=== PATIENT | female | born 1935 | race Caucasian/White ===

== ENCOUNTER 2020-08-02 08:07 | Inpatient (IN) | payer MEDICARE, SELFPAY ==
--- NOTE | ~2020-08-02 | XR_ITS ---
EXAMINATION: XR CHEST CLINICAL INFORMATION: Fall COMPARISON: None TECHNIQUE: Frontal view of the chest was obtained. FINDINGS: The cardiac and mediastinal contours are normal. There is a small nodular density that projects over the right midlung. This may be related to superimposition of vascular structures, the right anterior third and posterior eighth ribs. The lungs are otherwise clear. There is no pleural effusion or pneumothorax. There are surgical clips in the left axilla. There are degenerative changes of the spine. XR/XR chest 1V IMPRESSION: No evidence for acute disease in the chest. 5 mm right mid lung nodule, question related to superimposition of bony and vascular structures.
--- NOTE | ~2020-08-02 | XR_ITS ---
EXAMINATION: XR CHEST CLINICAL INFORMATION: Question pulmonary nodule COMPARISON: Previous chest x-ray from yesterday TECHNIQUE: 2 views of the chest were obtained. FINDINGS: The cardiac and mediastinal contours are stable. The lungs are clear. There is question right mid lung pulmonary nodule on yesterday's chest x-ray is not appreciated. There is no pleural effusion or pneumothorax. There are degenerative changes of the spine. There are surgical clips in the left axilla. XR/XR chest 2V IMPRESSION: No pulmonary nodule seen.
--- NOTE | ~2020-08-02 | CT_ITS ---
EXAMINATION: CT HEAD WITHOUT CONTRAST CLINICAL INFORMATION: Fall COMPARISON: None TECHNIQUE: Contiguous axial imaging was performed from the skull base to vertex without intravenous administration of contrast. This CT examination was performed using dose optimization techniques as appropriate, variously including the following: *Automated exposure control *Adjustment of mA and/or kV according to patient size (this includes techniques or standardized protocols for targeted exams where dose is matched to indication/reason for exam; i.e. extremities or head) *Use of iterative reconstruction technique DLP: 611 mGy-cm FINDINGS: There is no evidence of an extra-axial collection. There is no evidence of intra-axial or extra-axial hemorrhage. The ventricles and extra-axial CSF spaces are prominent suggestive of generalized atrophy. There is nonspecific periventricular white matter disease. No mass, mass effect or infarct is seen. Review of bone windows is normal. No skull fracture is seen. Paranasal sinuses mastoid air cells and middle ears are clear. CT/CT head/brain wo con IMPRESSION: No acute findings. Generalized atrophy and nonspecific periventricular white matter disease.
[2020-08-02 08:22] VITALS: BP 153/65; BP 154/80; PULSE 100; RESP 18; TEMP 36.6; O2SAT 98; BMI 31.6
--- NOTE | 2020-08-02 08:44 | ECG_ITS ---
Test Reason : FALL Blood Pressure : / mmHG Vent. Rate : 091 BPM Atrial Rate : 091 BPM P-R Int : 128 ms QRS Dur : 078 ms QT Int : 350 ms P-R-T Axes : 040 -02 -34 degrees QTc Int : 430 ms Normal sinus rhythm Cannot rule out Inferior infarct , age undetermined Abnormal ECG No previous ECGs available Referred By: Princess Olson Electronically Signed By:MARCELO GARBER MD
--- NOTE | 2020-08-02 08:46 | ED.FALL ---
HPI - Fall General Chief Complaint: Fall Stated Complaint: FALL,ON FLOOR SINCE 3AM,NO C/O PAIN/INJURY PER EMS Time Seen by Provider: 08/02/20 08:44 Source: patient and EMS Mode of arrival: EMS Limitations: no limitations History of Present Illness HPI Narrative: 84 years old female came in by ambulance for evaluation of a fall. Patient fell last night around 03:00 patient was changing her shirt and lost balance then fell backward, patient had the back of her head, declined any LOC, patient opted to remain on the floor did not want to bother anybody at that time, then patient called for help at 07:00, patient normally lives home alone mostly independently, patient declined taking any blood thinner, also declined any symptoms of pain or injuries. Patient declined any LOC or feeling dizzy or chest pain. Related Data Allergies Allergy/AdvReac Type Severity Reaction Status Date / Time adhesive tape Allergy Rash Verified 08/02/20 08:21 Review of Systems Review of Systems: All other systems are reviewed and are negative Constitutional: Reports as per HPI and Reports no additional constitutional complaints Eyes: Reports as per HPI and Reports no additional eye complaints Reports system reviewed and no additional complaints, except as documented Cardiovascular: Reports as per HPI and Reports no additional cardiovascular complaints Respiratory: Reports as per HPI and Reports no additional respiratory complaints Gastrointestinal: Reports as per HPI and Reports no additional gastrointestinal complaints Genitourinary: Reports no additional female genitourinary complaints Musculoskeletal: Reports no additional musculoskeletal complaints Skin/Breast: Reports system reviewed and no additional complaints, except as docu Psychiatric: Reports no additional psychiatric complaints Endocrine: Reports no additional endocrine complaints Hematologic/Lymphatic: Reports no additional hematologic/lymphatic complaints Allergic/Immunologic: Reports no additional allergic/immunologic complaints Reports system reviewed and no additional complaints, except as documented and Reports Abnormal speech present [facility] Social History Social History Alcohol intake: never Smoking Status: Never smoker Use of substances other than those prescribed or required for medical reasons: No Advance Directives: No Advance Directives Information Provided: No Physical Exam Vital Signs: Vital Signs: Last Vital Signs Temp 97.8 F 08/02/20 08:22 Pulse 91 08/02/20 12:00 Resp 18 08/02/20 12:00 BP 134/55 L 08/02/20 12:00 Pulse Ox 96 08/02/20 12:00 Body Mass Index 31.6 Vital signs have been reviewed as appeared to be correct. Blood pressure normal. Heart rate normal. Respiration rate normal. Temperature normal. Oxygen saturation normal. Appearance: Alert. Oriented X3. No acute distress. Head: Normal external exam. Normocephalic. Atraumatic. No Espinoza signs noted. No raccoon eyes noted Eyes: PERRLA. EOMI. Conjunctiva and sclera normal. Eyelids normal. ENT: TM's Normal. Pharynx normal. Uvula midline. Moist mucous membranes. No trismus noted. No drooling noted. No muffled voice noted. Neck: Normal inspection. Neck supple. FROM. No adenopathy. Thyroid Normal. No meningeal signs. No neck mass noted. CVS: Normal heart rate and rhythm. Heart sound normal. No murmurs noted. Pulses normal throughout. Respiratory: No respiratory distress. Painless inspiration. Breath sounds normal. No wheezes/rales/rhonchi noted. Chest nontender. No accessory muscle usage noted or decreased air movement noted. Abdomen: Soft and nontender. Bowel sounds normal in all 4 quadrants. No distention noted. No organomegaly noted. No visible injury noted. Back: No CVA tenderness. Full range of motion noted. Skin: Skin warm and dry. Normal skin color. Normal skin turgor. No rashes/lesions/lacerations noted. Extremities: No lower extremity edema. Extremities exhibit normal range of motion. Extremities nontender. Neuro: Oriented X 3. No motor deficit. No sensory deficit. Reflexes normal. GCS 15 Course Course Course Narrative: Assessment and plan. 84-year-old female came in after a mechanical fall and found to be hyperglycemic. No DKA, patient was placed on IV insulin drip while in the emergency department now blood sugar is in the 500s, will stop insulin drip continue with IV hydration and intermittent sq long acting insulin boluses Reevaluation(s) Reevaluation #1: Blood sugar now is 403, will wean off the IV insulin drip started long-acting subQ insulin. IV hydration, Will admit the patient for further management of hyperglycemia. Time: 15:57 MDM - Fall Lab Data Attestation: I reviewed the patient's lab results. Result diagrams: 08/02/20 09:38 08/02/20 09:38 Labs: Lab Results 08/02/20 08/02/20 08/02/20 Range/Units 09:02 09:38 09:38 WBC 12.9 H (4.8-10.8) X10*3/uL RBC 5.54 H (4.20-5.50) X10*6/uL Hgb 16.6 H (12.0-16.0) g/dl Hct 50.4 H (37-47) % MCV 91.0 (80-98) fL MCH 30.0 (27.0-33.0) pg MCHC 32.9 (31.0-35.0) g/dl RDW 13.5 (11.0-16.0) % Plt Count 230 (160-400) X10*3/uL MPV 11.8 (9.4-12.3) fL Immature Gran % (Auto) 0.6 H (0.0-0.4) % Neut % (Auto) 73.9 H (45-73) % Lymph % (Auto) 19.2 L (20-40) % [place] % (Auto) 6.1 (2-11) % Eos % (Auto) 0.0 (0-4) % Baso % (Auto) 0.2 (0-2) % Lymph # (Auto) 2.5 (1.2-4.9) X10*3/uL [place] # (Auto) 0.8 (0.1-1.2) X10*3/uL Eos # (Auto) 0.0 (0.0-0.4) X10*3/uL Baso # (Auto) 0.0 (0.0-0.2) X10*3/uL Abs Immat Gran (auto) 0.08 H (0.00-0.03) X10*3/uL Absolute Neuts (auto) 9.5 H (2.0-8.3) X10*3/uL Absolute Nucleated RBC 0.000 (0.0-0.012) X10*3/uL Nucleated RBC % (auto) 0.0 (0.0-0.2) /100WBC O2 Saturation % ABG pH at Pt Temp (7.35-7.45) ABG pH (Temp Correct) (7.35-7.45) ABG pCO2 at Pt Temp (32-45) mmHg ABG pCO2 (Temp Corrct (32-45) mmHg ABG pO2 at Pt Temp (83-108) mmHg ABG pO2 (Temp Correct (83-108) ABG HCO3 (22-26) mmol/L ABG Base Excess (Actual) mmol/L Sodium 146 H (135-145) mmol/L Potassium 5.5 H (3.3-5.1) mmol/L Chloride 98 (96-108) mmol/L Carbon Dioxide 21 L (22-29) mmol/L Anion Gap 33 H (12-20) BUN 32 H (9-16) mg/dL Creatinine 1.90 H (0.5-1.4) mg/dL Estim Creat Clear Calc 18.9 Estimated GFR 25 POC Glucose > 600 H* (60-115) mg/dL Random Glucose 845 H* (60-115) mg/dL Calcium 11.0 H (8.4-10.2) mg/dL Total Bilirubin 0.6 (0.0-1.0) mg/dL Direct Bilirubin 0.3 (0.0-0.5) mg/dL AST 16 (5-31) U/L ALT 29 (0-31) U/L Alkaline Phosphatase 156 H (39-117) U/L Total Creatine Kinase 91 (26-140) U/L Troponin I High Sens (<3.5-17.0) ng/L B-Natriuretic Peptide (<100) pg/mL Total Protein 7.7 (6.5-8.0) g/dL Albumin 4.5 (3.5-5.0) g/dL Lipase 56 (8-78) U/L 08/02/20 08/02/20 08/02/20 Range/Units 09:38 09:38 09:48 WBC (4.8-10.8) X10*3/uL RBC (4.20-5.50) X10*6/uL Hgb (12.0-16.0) g/dl Hct (37-47) % MCV (80-98) fL MCH (27.0-33.0) pg MCHC (31.0-35.0) g/dl RDW (11.0-16.0) % Plt Count (160-400) X10*3/uL MPV (9.4-12.3) fL Immature Gran % (Auto) (0.0-0.4) % Neut % (Auto) (45-73) % Lymph % (Auto) (20-40) % [place] % (Auto) (2-11) % Eos % (Auto) (0-4) % Baso % (Auto) (0-2) % Lymph # (Auto) (1.2-4.9) X10*3/uL [place] # (Auto) (0.1-1.2) X10*3/uL Eos # (Auto) (0.0-0.4) X10*3/uL Baso # (Auto) (0.0-0.2) X10*3/uL Abs Immat Gran (auto) (0.00-0.03) X10*3/uL Absolute Neuts (auto) (2.0-8.3) X10*3/uL Absolute Nucleated RBC (0.0-0.012) X10*3/uL Nucleated RBC % (auto) (0.0-0.2) /100WBC O2 Saturation % ABG pH at Pt Temp (7.35-7.45) ABG pH (Temp Correct) (7.35-7.45) ABG pCO2 at Pt Temp (32-45) mmHg ABG pCO2 (Temp Corrct (32-45) mmHg ABG pO2 at Pt Temp (83-108) mmHg ABG pO2 (Temp Correct (83-108) ABG HCO3 (22-26) mmol/L ABG Base Excess (Actual) mmol/L Sodium (135-145) mmol/L Potassium (3.3-5.1) mmol/L Chloride (96-108) mmol/L Carbon Dioxide (22-29) mmol/L Anion Gap (12-20) BUN (9-16) mg/dL Creatinine (0.5-1.4) mg/dL Estim Creat Clear Calc Estimated GFR POC Glucose > 600 H* (60-115) mg/dL Random Glucose (60-115) mg/dL Calcium (8.4-10.2) mg/dL Total Bilirubin (0.0-1.0) mg/dL Direct Bilirubin (0.0-0.5) mg/dL AST (5-31) U/L ALT (0-31) U/L Alkaline Phosphatase (39-117) U/L Total Creatine Kinase (26-140) U/L Troponin I High Sens 11.3 (<3.5-17.0) ng/L B-Natriuretic Peptide 69 (<100) pg/mL Total Protein (6.5-8.0) g/dL Albumin (3.5-5.0) g/dL Lipase (8-78) U/L 08/02/20 08/02/20 08/02/20 Range/Units 11:23 12:03 12:59 WBC (4.8-10.8) X10*3/uL RBC (4.20-5.50) X10*6/uL Hgb (12.0-16.0) g/dl Hct (37-47) % MCV (80-98) fL MCH (27.0-33.0) pg MCHC (31.0-35.0) g/dl RDW (11.0-16.0) % Plt Count (160-400) X10*3/uL MPV (9.4-12.3) fL Immature Gran % (Auto) (0.0-0.4) % Neut % (Auto) (45-73) % Lymph % (Auto) (20-40) % [place] % (Auto) (2-11) % Eos % (Auto) (0-4) % Baso % (Auto) (0-2) % Lymph # (Auto) (1.2-4.9) X10*3/uL [place] # (Auto) (0.1-1.2) X10*3/uL Eos # (Auto) (0.0-0.4) X10*3/uL Baso # (Auto) (0.0-0.2) X10*3/uL Abs Immat Gran (auto) (0.00-0.03) X10*3/uL Absolute Neuts (auto) (2.0-8.3) X10*3/uL Absolute Nucleated RBC (0.0-0.012) X10*3/uL Nucleated RBC % (auto) (0.0-0.2) /100WBC O2 Saturation 97.0 % ABG pH at Pt Temp 7.41 (7.35-7.45) ABG pH (Temp Correct) 7.42 (7.35-7.45) ABG pCO2 at Pt Temp 29 L (32-45) mmHg ABG pCO2 (Temp Corrct 28 L (32-45) mmHg ABG pO2 at Pt Temp 99 (83-108) mmHg ABG pO2 (Temp Correct 96 (83-108) ABG HCO3 18 L (22-26) mmol/L ABG Base Excess (Actual) -4.2 mmol/L Sodium (135-145) mmol/L Potassium (3.3-5.1) mmol/L Chloride (96-108) mmol/L Carbon Dioxide (22-29) mmol/L Anion Gap (12-20) BUN (9-16) mg/dL Creatinine (0.5-1.4) mg/dL Estim Creat Clear Calc Estimated GFR POC Glucose > 600 H* 562 H* (60-115) mg/dL Random Glucose (60-115) mg/dL Calcium (8.4-10.2) mg/dL Total Bilirubin (0.0-1.0) mg/dL Direct Bilirubin (0.0-0.5) mg/dL AST (5-31) U/L ALT (0-31) U/L Alkaline Phosphatase (39-117) U/L Total Creatine Kinase (26-140) U/L Troponin I High Sens (<3.5-17.0) ng/L B-Natriuretic Peptide (<100) pg/mL Total Protein (6.5-8.0) g/dL Albumin (3.5-5.0) g/dL Lipase (8-78) U/L 08/02/20 08/02/20 Range/Units 14:09 15:20 WBC (4.8-10.8) X10*3/uL RBC (4.20-5.50) X10*6/uL Hgb (12.0-16.0) g/dl Hct (37-47) % MCV (80-98) fL MCH (27.0-33.0) pg MCHC (31.0-35.0) g/dl RDW (11.0-16.0) % Plt Count (160-400) X10*3/uL MPV (9.4-12.3) fL Immature Gran % (Auto) (0.0-0.4) % Neut % (Auto) (45-73) % Lymph % (Auto) (20-40) % [place] % (Auto) (2-11) % Eos % (Auto) (0-4) % Baso % (Auto) (0-2) % Lymph # (Auto) (1.2-4.9) X10*3/uL [place] # (Auto) (0.1-1.2) X10*3/uL Eos # (Auto) (0.0-0.4) X10*3/uL Baso # (Auto) (0.0-0.2) X10*3/uL Abs Immat Gran (auto) (0.00-0.03) X10*3/uL Absolute Neuts (auto) (2.0-8.3) X10*3/uL Absolute Nucleated RBC (0.0-0.012) X10*3/uL Nucleated RBC % (auto) (0.0-0.2) /100WBC O2 Saturation % ABG pH at Pt Temp (7.35-7.45) ABG pH (Temp Correct) (7.35-7.45) ABG pCO2 at Pt Temp (32-45) mmHg ABG pCO2 (Temp Corrct (32-45) mmHg ABG pO2 at Pt Temp (83-108) mmHg ABG pO2 (Temp Correct (83-108) ABG HCO3 (22-26) mmol/L ABG Base Excess (Actual) mmol/L Sodium (135-145) mmol/L Potassium (3.3-5.1) mmol/L Chloride (96-108) mmol/L Carbon Dioxide (22-29) mmol/L Anion Gap (12-20) BUN (9-16) mg/dL Creatinine (0.5-1.4) mg/dL Estim Creat Clear Calc Estimated GFR POC Glucose 528 H* 406 H* (60-115) mg/dL Random Glucose (60-115) mg/dL Calcium (8.4-10.2) mg/dL Total Bilirubin (0.0-1.0) mg/dL Direct Bilirubin (0.0-0.5) mg/dL AST (5-31) U/L ALT (0-31) U/L Alkaline Phosphatase (39-117) U/L Total Creatine Kinase (26-140) U/L Troponin I High Sens (<3.5-17.0) ng/L B-Natriuretic Peptide (<100) pg/mL Total Protein (6.5-8.0) g/dL Albumin (3.5-5.0) g/dL Lipase (8-78) U/L Imaging Data CT scan - head: Radiologist's impression: No acute findings. Generalized atrophy and nonspecific periventricular white matter disease. Chest x-ray: Radiologist's impression: No evidence for acute disease in the chest. 5 mm right mid lung nodule, question related to superimposition of bony and vascular structures. Discharge Plan Discharge Clinical Impression: Lung nodule, Acute hyperglycemia, Fall Patient Disposition: Admitted As Inpatient
[2020-08-02 09:42] LABS: Glucose, Whole Blood > 600 mg/dL (60-115)
[2020-08-02 09:43] LABS: MANUAL DIFF FLAG NO
[2020-08-02 09:46] LABS: Basophils Percent Auto 0.2 % (0-2); Hematocrit 50.4 % (37-47); Hemoglobin 16.6 g/dl (12.0-16.0); Imm Gran Abs Auto 0.08 X10*3/uL (0.00-0.03); Imm Gran Pct Auto 0.6 % (0.0-0.4); Lymphocytes Absolute Auto 2.5 X10*3/uL (1.2-4.9); Lymphocytes Percent Auto 19.2 % (20-40); Mean Corpuscular HGB Conc 32.9 g/dl (31.0-35.0); Mean Platelet Volume 11.8 fL (9.4-12.3); Monocytes Absolute Auto 0.8 X10*3/uL (0.1-1.2); Monocytes Percent Auto 6.1 % (2-11); Neutrophils Absolute Auto 9.5 X10*3/uL (2.0-8.3); Neutrophils Percent Auto 73.9 % (45-73); Platelet Count 230 X10*3/uL (160-400); Red Blood Count 5.54 X10*6/uL (4.20-5.50); Red Cell Distribution Width 13.5 % (11.0-16.0); White Blood Count 12.9 X10*3/uL (4.8-10.8)
[2020-08-02 09:51] LABS: Glucose, Whole Blood > 600 mg/dL (60-115)
[2020-08-02 10:21] LABS: B Type Natriuretic Peptide 69 pg/mL (<100)
[2020-08-02 10:22] LABS: Troponin-I High Sensitivity 11.3 ng/L (<3.5-17.0)
[2020-08-02] MEDS: 0.9 % Sodium Chloride 1,000 ML 999 ML IVCONT ×2 (10:27→16:03)
[2020-08-02] MEDS: Insulin Regular, Human 100 UNIT/ML 3 ML VIAL IVPUSH ×3 (10:27→14:22)
[2020-08-02 10:30] VITALS: BP 137/62; PULSE 89; RESP 18; O2SAT 98
--- NOTE | 2020-08-02 10:31 | PC.NURSE ---
EKG, labs, and CT obtained. Pt given IVF and IV insluin for a POC >600
[2020-08-02 10:38] LABS: Alanine Aminotransferase 29 U/L (0-31); Albumin Level 4.5 g/dL (3.5-5.0); Alkaline Phosphatase 156 U/L (39-117); Anion Gap 33 (12-20); Aspartate Amino Transferase 16 U/L (5-31); Bilirubin Direct 0.3 mg/dL (0.0-0.5); Bilirubin Total 0.6 mg/dL (0.0-1.0); Blood Urea Nitrogen 32 mg/dL (9-16); Carbon Dioxide 21 mmol/L (22-29); Chloride 98 mmol/L (96-108); Creatinine Clr Calc Pharmacy 18.9; Estimated Glomerular Filt Rate 25; Lipase 56 U/L (8-78); Potassium 5.5 mmol/L (3.3-5.1); Sodium 146 mmol/L (135-145); Total Protein 7.7 g/dL (6.5-8.0)
[2020-08-02 10:49] LABS: Glucose Random 845 mg/dL (60-115)
[2020-08-02] MEDS: Insulin Regular/NS 100 UNIT/100 ML PLAST..BAG IVCONT (11:47)
[2020-08-02 12:00] VITALS: BP 134/55; PULSE 91; RESP 18; O2SAT 96
[2020-08-02 12:11] LABS: ABG Base Excess -4.2 mmol/L; ABG HCO3 18 mmol/L (22-26); ABG pCO2 29 mmHg (32-45); ABG pCO2 TC 28 mmHg (32-45); ABG pH 7.41 (7.35-7.45); ABG pH TC 7.42 (7.35-7.45); ABG pO2 99 mmHg (83-108); ABG pO2 TC 96 (83-108)
[2020-08-02 12:15] LABS: ABG Refer to POC result
--- NOTE | 2020-08-02 12:19 | PC.NURSE ---
New IV placed to left wrist and Insulin drip started.
[2020-08-02 12:31] LABS: Glucose, Whole Blood > 600 mg/dL (60-115)
[2020-08-02 13:03] LABS: Glucose, Whole Blood 562 mg/dL (60-115)
--- NOTE | 2020-08-02 14:30 | PC.NURSE ---
VO FROM TO CONTINUE INSULIN GTT AT 4U/HR.
[2020-08-02 15:24] LABS: Glucose, Whole Blood 406 mg/dL (60-115)
[2020-08-02 15:24] LABS: Glucose, Whole Blood 528 mg/dL (60-115)
--- NOTE | 2020-08-02 15:27 | PC.NURSE ---
POC trending down. She remains on drip at this time. Plan per MD is to take pt off of drip.
[2020-08-02 16:00] VITALS: BP 132/63; PULSE 88; RESP 18; O2SAT 96
[2020-08-02 16:12] LABS: Glucose, Whole Blood 348 mg/dL (60-115)
[2020-08-02] MEDS: Insulin Glargine,Hum.rec.anlog 100 UNIT/ML 10 ML VIAL SUBCUT (16:12)
--- NOTE | 2020-08-02 16:12 | PC.NURSE ---
poc obtained and long acting insulin given. Per MD give lantus as ordered, continue insulin gtt at same rate x1 hr after lantus and then turn off.
--- NOTE | 2020-08-02 16:45 | PM.IMHP ---
History of Present Illness Date of Service: 08/02/20 Chief Complaint: fall 84-year-old woman presenting to the ER after several falls at home. according to the patient's nephew she had at least 2 falls at home over the last 2 days. First fall she had EMS was called and she decided she did not want any further workup and they were able to put her in a chair. Second time she fell she called her nephew and his went to check on her and spent most of the day with her. She was found to be weak and unable to get up and they decided to have her evaluated in the emergency department. Patient was alert but somewhat vague. She seemed very weak she reported increased thirst and urination over the last several weeks. She denies any history of diabetes in the past. She denied chest pain, abdominal pain, nausea, vomiting, diarrhea. In the ER her blood sugar was noted to be greater than 845. She was given 2 L of IV fluid, 4 doses of insulin and then placed on an insulin drip. Blood sugars have ranged from 348 to greater than 600. initial potassium 5.5, now 3.8, initial sodium 146 now 156. Anion gap since closed, pH 7.42. Head CT showed no acute abnormalities, chest x-ray negative for consolidation or effusion, urinalysis pending. Patient be admitted for further management and treatment of DKA versus HHS. Review of Systems Review of Systems: Denies any recent fever chills or decrease in appetite respiratory denies any shortness of breath coverage production cardiovascular denies chest pain gastrointestinal denies any dysphagia abdominal pain nausea vomiting or diarrhea genitourinary reports polydipsia and polyuria musculoskeletal denies any joint pain or swelling neuropsych denies any weakness or seizures all other systems reviewed are negative [facility] Medical History (Updated 08/02/20 @ 17:03 by Jessica Cervantes NP) HTN (hypertension), benign Hyperlipidemia Pertinent family history: Great nephew with diabetes type II Social History Alcohol intake: never Smoking Status: Never smoker Use of substances other than those prescribed or required for medical reasons: No Advance Directives: No Advance Directives Information Provided: No Meds Allergies Allergy/AdvReac Type Severity Reaction Status Date / Time adhesive tape Allergy Rash Verified 08/02/20 08:21 Active Medications: Current Medications Generic Name Dose Route Start Last Admin Trade Name Lisa PRN Reason Stop Dose Admin Insulin Human Regular 100 unit in 100 mls @ 0 mls/hr 08/02/20 11:15 08/02/20 13:02 Myxredlin IVCONT 4 unit/hr .Q0M ABDI 4 mls/hr Titration Protocol Per Protocol Sodium Chloride 1,000 mls @ 999 mls/hr 08/02/20 16:00 08/02/20 16:03 Ns IVCONT 08/02/20 17:00 999 mls/hr .Q1H1M ABDI Administration Pharmacy Consult 1 each 08/02/20 15:46 Consult Rx Perform Med Rec MISCELLANE ONCE PRN Consult order Home Medications Medication Instructions Recorded Confirmed Last Taken Type atenolol 1 tab PO DAILY 08/02/20 08/02/20 Unknown History hydrochlorothiazide 1 tab PO DAILY 08/02/20 08/02/20 Unknown History simvastatin 1 tab PO BEDTIME 08/02/20 08/02/20 Unknown History Physical Exam Vital Signs and Narrative: Vital Signs: Last Vital Signs Temp 97.8 F 08/02/20 08:22 Pulse 88 08/02/20 16:00 Resp 18 08/02/20 16:00 BP 132/63 08/02/20 16:00 Pulse Ox 96 08/02/20 16:00 Body Mass Index 31.6 Appearing in no acute distress head is normocephalic atraumatic eyes pupils are PERRLA sclera is anicteric mouth throat mucous membranes are intact and moist neck is supple no lymphadenopathy, no JVD noted lung sounds are clear to auscultation heart regular rate rhythm, clear S1, S2 positive bowel sounds, abdomen is soft, nontender neuro patient is alert to self and place Results Labs CBC and Chem 7: 08/02/20 09:38 08/02/20 16:52 Labs: Laboratory Results - last 24 hr 08/02/20 08/02/20 08/02/20 09:02 09:38 09:38 MCV 91.0 MCH 30.0 MCHC 32.9 RDW 13.5 Plt Count 230 MPV 11.8 Immature Gran % (Auto) 0.6 H Neut % (Auto) 73.9 H Lymph % (Auto) 19.2 L [place] % (Auto) 6.1 Eos % (Auto) 0.0 Baso % (Auto) 0.2 Lymph # (Auto) 2.5 [place] # (Auto) 0.8 Eos # (Auto) 0.0 Baso # (Auto) 0.0 Abs Immat Gran (auto) 0.08 H Absolute Neuts (auto) 9.5 H Absolute Nucleated RBC 0.000 Nucleated RBC % (auto) 0.0 O2 Saturation ABG pH at Pt Temp ABG pH (Temp Correct) ABG pCO2 at Pt Temp ABG pCO2 (Temp Corrct ABG pO2 at Pt Temp ABG pO2 (Temp Correct ABG HCO3 ABG Base Excess (Actual) Anion Gap 33 H Estim Creat Clear Calc 18.9 Estimated GFR 25 POC Glucose > 600 H* Random Glucose 845 H* Calcium 11.0 H Total Bilirubin 0.6 Direct Bilirubin 0.3 AST 16 ALT 29 Alkaline Phosphatase 156 H Total Creatine Kinase 91 Troponin I High Sens B-Natriuretic Peptide Total Protein 7.7 Albumin 4.5 Lipase 56 08/02/20 08/02/20 08/02/20 09:38 09:38 09:48 MCV MCH MCHC RDW Plt Count MPV Immature Gran % (Auto) Neut % (Auto) Lymph % (Auto) [place] % (Auto) Eos % (Auto) Baso % (Auto) Lymph # (Auto) [place] # (Auto) Eos # (Auto) Baso # (Auto) Abs Immat Gran (auto) Absolute Neuts (auto) Absolute Nucleated RBC Nucleated RBC % (auto) O2 Saturation ABG pH at Pt Temp ABG pH (Temp Correct) ABG pCO2 at Pt Temp ABG pCO2 (Temp Corrct ABG pO2 at Pt Temp ABG pO2 (Temp Correct ABG HCO3 ABG Base Excess (Actual) Anion Gap Estim Creat Clear Calc Estimated GFR POC Glucose > 600 H* Random Glucose Calcium Total Bilirubin Direct Bilirubin AST ALT Alkaline Phosphatase Total Creatine Kinase Troponin I High Sens 11.3 B-Natriuretic Peptide 69 Total Protein Albumin Lipase 08/02/20 08/02/20 08/02/20 11:23 12:03 12:59 MCV MCH MCHC RDW Plt Count MPV Immature Gran % (Auto) Neut % (Auto) Lymph % (Auto) [place] % (Auto) Eos % (Auto) Baso % (Auto) Lymph # (Auto) [place] # (Auto) Eos # (Auto) Baso # (Auto) Abs Immat Gran (auto) Absolute Neuts (auto) Absolute Nucleated RBC Nucleated RBC % (auto) O2 Saturation 97.0 ABG pH at Pt Temp 7.41 ABG pH (Temp Correct) 7.42 ABG pCO2 at Pt Temp 29 L ABG pCO2 (Temp Corrct 28 L ABG pO2 at Pt Temp 99 ABG pO2 (Temp Correct 96 ABG HCO3 18 L ABG Base Excess (Actual) -4.2 Anion Gap Estim Creat Clear Calc Estimated GFR POC Glucose > 600 H* 562 H* Random Glucose Calcium Total Bilirubin Direct Bilirubin AST ALT Alkaline Phosphatase Total Creatine Kinase Troponin I High Sens B-Natriuretic Peptide Total Protein Albumin Lipase 08/02/20 08/02/20 08/02/20 14:09 15:20 16:08 MCV MCH MCHC RDW Plt Count MPV Immature Gran % (Auto) Neut % (Auto) Lymph % (Auto) [place] % (Auto) Eos % (Auto) Baso % (Auto) Lymph # (Auto) [place] # (Auto) Eos # (Auto) Baso # (Auto) Abs Immat Gran (auto) Absolute Neuts (auto) Absolute Nucleated RBC Nucleated RBC % (auto) O2 Saturation ABG pH at Pt Temp ABG pH (Temp Correct) ABG pCO2 at Pt Temp ABG pCO2 (Temp Corrct ABG pO2 at Pt Temp ABG pO2 (Temp Correct ABG HCO3 ABG Base Excess (Actual) Anion Gap Estim Creat Clear Calc Estimated GFR POC Glucose 528 H* 406 H* 348 H Random Glucose Calcium Total Bilirubin Direct Bilirubin AST ALT Alkaline Phosphatase Total Creatine Kinase Troponin I High Sens B-Natriuretic Peptide Total Protein Albumin Lipase Imaging Radiologist's Impressions: Impressions Chest X-Ray 08/02/20 08:44 IMPRESSION: No evidence for acute disease in the chest. 5 mm right mid lung nodule, question related to superimposition of bony and vascular structures. Head CT 08/02/20 08:45 IMPRESSION: No acute findings. Generalized atrophy and nonspecific periventricular white matter disease. Assessment and Plan (1) Acute hyperglycemia: Status: Acute 84 year old women admitted with new onset diabetes/HHS. She had 2 falls at home and reported polyuria and polydipsia. patient does have a nephew Gabriel Garcia ([phone]) but he stated he has not been following with her on her day-to-day life as much as he used to. No recent records in the system, records from [facility] requested Hyperglycemia secondary to new onset diabetes / hyperglycemia hyperosmolar state. Seems more like [employer] with BS >800 presenting after falls at home, lives alone no history of diabetes reported excessive thirst and urination Insulin drip in the ED - repeat BMP every 2-4 hours - check bs Q2h until stable - replace potassium as needed - Severe dehydration, aggressive IV fluid hydration - check A1c - sliding scale insulin, Lantus - Diabetic diet when tolerated Mild encephalopathy. Likely secondary to hyperglycemia, r/o infection No abnormality on cxr -Check ua Hypernatremia. Corrected sodium 153 - Treat blood glucose - 0.45 NS TUCKER. Secondary to DM/HHS - Aggressive IV fluid hydration - Check UA Hypertension. Stable blood pressure. - Hold HCTZ, continue beta elio DVT prophylaxis with heparin Full code Attending: Dr. Rodriguez
[2020-08-02 17:23] LABS: COVID-19 Test Negative (Negative)
[2020-08-02 17:46] LABS: Blood Urea Nitrogen 27 mg/dL (9-16); Calcium 10.1 mg/dL (8.4-10.2); Creatinine Clr Calc Pharmacy 25.6; Estimated Glomerular Filt Rate 36
--- NOTE | 2020-08-02 17:47 | PM.EVENT ---
Event Note Date of Service: 08/02/20 Event Note: addendum to H+P by FOAM RUBBER CURER Jessica Cervantes Addendum to history and physical by mid-level provider Marcellus Cervantes I interviewed and examined the patient. I discussed their presentation and management with the mid-level provider. I reviewed the history and physical and agree with the documentation, with the following additions and corrections: 84yo F without prior hx of DM2 brought in to ER after multiple falls at home, where she lives alone. Increasing weakness and notes polyuria + polydipsia. Presented with hyperglycemia without ketosis and started on insulin gtt. Also hypernatremic and in TUCKER. On exam, afebrile, HR 88, BP 132/63. Very dry mucus membranes. Mildly confused but oriented to self/place. Impression is of HHC with TUCKER and hypernatremia due to newly diagnosed DM2. Plan admit to [facility], give basal/bolus SQ insulin, check A1c, give 1/2NS, encourage free water intake, monitor electrolytes.
[2020-08-02 18:02] LABS: Glucose Random 406 mg/dL (60-115)
[2020-08-02 18:03] LABS: Anion Gap 18 (12-20); Carbon Dioxide 29 mmol/L (22-29); Chloride 113 mmol/L (96-108); Potassium 3.8 mmol/L (3.3-5.1); Sodium 156 mmol/L (135-145)
[2020-08-02 18:31] LABS: Osmolality, Serum 347 mosm/kg (281-305)
--- NOTE | 2020-08-02 19:00 | PC.NURSE ---
Attempt at calling report. RN to call back when available.
[2020-08-02] MEDS: Insulin Regular, Human 100 UNIT/ML 3 ML VIAL 10 UNIT IVPUSH (19:04)
[2020-08-02] MEDS: Sodium Chloride 0.45 % 1,000 ML 100 ML IVCONT (19:07)
--- NOTE | 2020-08-02 19:14 | PC.NURSE ---
Report give to [facility] JANICE Childress
[2020-08-02 19:28] LABS: Glucose, Whole Blood 323 mg/dL (60-115)
[2020-08-02 19:48] VITALS: BP 125/74; PULSE 104; RESP 19; TEMP 36.9; O2SAT 96
--- NOTE | 2020-08-02 20:13 | PC.NURSE ---
Patient arrived on [facility] at 1925. Insulin gtt stopped in ED, Quita CAMACHO stated drip was stopped around 1700. Medication DC in MAY. pt not on insulin drip upon arrival to floor. Insulin gtt marked as wasted/completed in MAY by this nurse and Nursing Aide
[2020-08-02 20:49] LABS: Glucose, Whole Blood 291 mg/dL (60-115)
[2020-08-02] MEDS: Insulin Lispro 100 UNIT/ML 3 ML VIAL SUBCUT (21:30)
[2020-08-02] MEDS: Atorvastatin Calcium 10 MG TABLET PO (21:31)
[2020-08-02 21:46] LABS: Anion Gap 20 (12-20); Blood Urea Nitrogen 27 mg/dL (9-16); Calcium 9.8 mg/dL (8.4-10.2); Carbon Dioxide 25 mmol/L (22-29); Chloride 115 mmol/L (96-108); Creatinine Clr Calc Pharmacy 28.5; Estimated Glomerular Filt Rate 40; Glucose Random 333 mg/dL (60-115); Potassium 3.8 mmol/L (3.3-5.1); Sodium 156 mmol/L (135-145)
[2020-08-02 22:21] LABS: Glucose, Whole Blood 313 mg/dL (60-115)
--- NOTE | 2020-08-02 22:21 | PC.NURSE ---
Pt POC at 222 was 313. aware, ordered 10 units lispro.
[2020-08-02] MEDS: Insulin Lispro 100 UNIT/ML 3 ML VIAL 10 UNIT SUBCUT (22:30)
[2020-08-02 23:44] LABS: Anion Gap 23 (12-20); Blood Urea Nitrogen 27 mg/dL (9-16); Calcium 9.2 mg/dL (8.4-10.2); Carbon Dioxide 18 mmol/L (22-29); Chloride 117 mmol/L (96-108); Creatinine Clr Calc Pharmacy 29.4; Estimated Glomerular Filt Rate 42; Glucose Random 333 mg/dL (60-115); Potassium 4.1 mmol/L (3.3-5.1); Sodium 154 mmol/L (135-145)
[2020-08-02 23:57] VITALS: BP 167/70; PULSE 81; RESP 16; TEMP 36.4; O2SAT 98
[2020-08-03] VITALS (7 sets, daily range): BP systolic 112–160; BP diastolic 52–74; PULSE 66–89; RESP 18–20; TEMP 36.1–36.8; O2SAT 96–100
[2020-08-03 00:22] LABS: Glucose, Whole Blood 239 mg/dL (60-115)
[2020-08-03 01:20] LABS: Anion Gap 13 (12-20); Blood Urea Nitrogen 26 mg/dL (9-16); Calcium 9.5 mg/dL (8.4-10.2); Carbon Dioxide 31 mmol/L (22-29); Chloride 114 mmol/L (96-108); Estimated Glomerular Filt Rate 46; Glucose Random 219 mg/dL (60-115); Potassium 3.1 mmol/L (3.3-5.1); Sodium 155 mmol/L (135-145)
[2020-08-03 01:53] LABS: Glucose, Whole Blood 179 mg/dL (60-115)
[2020-08-03 03:40] LABS: Hemoglobin A1c % > 14.0 %
[2020-08-03] MEDS: Sodium Chloride 0.45 % 1,000 ML 100 ML IVCONT ×2 (03:46→13:33)
[2020-08-03 04:12] LABS: Glucose, Whole Blood 199 mg/dL (60-115)
[2020-08-03 04:17] LABS: Glucose Urine UA 500 MG/DL (NEG); Leukocyte Esterase Urine NEG (NEG); Nitrite Urine NEG (NEG); Specific Gravity - Urine 1.025 (1.005-1.025); Urine Blood NEG (NEG); Urine Ketones 40 MG/DL (NEG); Urine Protein TRACE MG/DL (NEG-TRACE)
[2020-08-03 04:31] LABS: Appearance Urine CLEAR; Color Urine YELLOW
[2020-08-03 04:32] LABS: Osmolality Urine 959 mosm/kg (373-1093)
[2020-08-03 04:40] LABS: Potassium Urine Random 39.4 mmol/L; Sodium Urine Random < 20.0 mmol/L
[2020-08-03 06:04] LABS: Glucose, Whole Blood 238 mg/dL (60-115)
[2020-08-03 06:59] LABS: MANUAL DIFF FLAG NO
[2020-08-03 07:05] LABS: Basophils Percent Auto 0.2 % (0-2); Eosinophils Percent Auto 0.2 % (0-4); Hematocrit 44.4 % (37-47); Hemoglobin 14.7 g/dl (12.0-16.0); Imm Gran Abs Auto 0.09 X10*3/uL (0.00-0.03); Imm Gran Pct Auto 0.6 % (0.0-0.4); Lymphocytes Absolute Auto 4.1 X10*3/uL (1.2-4.9); Lymphocytes Percent Auto 25.7 % (20-40); Mean Corpuscular HGB Conc 33.1 g/dl (31.0-35.0); Mean Corpuscular Hemoglobin 30.2 pg (27.0-33.0); Mean Corpuscular Volume 91.4 fL (80-98); Mean Platelet Volume 11.3 fL (9.4-12.3); Monocytes Absolute Auto 1.3 X10*3/uL (0.1-1.2); Monocytes Percent Auto 8.2 % (2-11); Neutrophils Absolute Auto 10.5 X10*3/uL (2.0-8.3); Neutrophils Percent Auto 65.1 % (45-73); Platelet Count 203 X10*3/uL (160-400); Red Blood Count 4.86 X10*6/uL (4.20-5.50); Red Cell Distribution Width 13.8 % (11.0-16.0); White Blood Count 16.1 X10*3/uL (4.8-10.8)
[2020-08-03 07:10] LABS: INTERNATIONAL NORM RATIO 1.1 (0.9-1.1); Prothrombin Time 12.9 SEC (10.8-13.0)
[2020-08-03 07:33] LABS: Cholesterol 162 mg/dL; HDL Cholesterol 39 mg/dL; LDL Cholesterol Calculated 97 mg/dl; Triglycerides 131 mg/dL
[2020-08-03 07:37] LABS: Magnesium 2.2 mg/dL (1.6-2.6)
[2020-08-03 08:05] LABS: Anion Gap 19 (12-20); Blood Urea Nitrogen 27 mg/dL (9-16); Calcium 9.1 mg/dL (8.4-10.2); Carbon Dioxide 26 mmol/L (22-29); Chloride 111 mmol/L (96-108); Creatinine Clr Calc Pharmacy 32.9; Estimated Glomerular Filt Rate 48; Glucose Random 312 mg/dL (60-115); Potassium 3.9 mmol/L (3.3-5.1); Sodium 152 mmol/L (135-145)
[2020-08-03 08:19] LABS: Glucose, Whole Blood 314 mg/dL (60-115)
--- NOTE | 2020-08-03 08:24 | P.CDIC_ITS ---
CDI Concurrent Query Service Date: 08/03/20 Documentation Clarification: Please clarify if you are treating a proba ble/suspected/likely or confirmed: Toxic Encephalopathy Metabolic Encephalopathy Toxic Metabolic Encephalopathy Provider Response: Metabolic Encephalopathy PLEASE DO NOT DELETE/MODIFY EXISTING CONTENT Additional information is needed in order to code to the highest accuracy and appropriate Severity of Illness (SOI). Please clarify the information noted below in your progress notes and discharge summary. Risk Factors/Clinical Indicators/Treatments 84 year old female admitted after a fall found to be hyerglycemic, BS 500 - 845. Alert, somewhat vague CT Head negative Per H&P: Acute Hyperglycemia, new onset Diabetes, Mild Encephalopathy, likely secondary to hyperglycemia, rule out infection CDS: Meghan Rascon RN Contact Number: [phone] Please Review the information above and exercise your independent professional judgment in responding to the query. If you concur, pleas document in the PROGRESS NOTES and DISCHARGE SUMMARY. If you do not agree with the query, please document in the query above. THIS QUERY IS PART OF THE PERMANENT MEDICAL RECORD
[2020-08-03] MEDS: atenoloL 25 MG TABLET PO (08:26)
[2020-08-03] MEDS: Insulin Lispro 100 UNIT/ML 3 ML VIAL SUBCUT ×5 (08:27→21:13)
[2020-08-03] MEDS: 0.9 % Sodium Chloride Flush 3 ML SYRINGE IVFLUSH ×3 (08:28→21:13)
--- NOTE | 2020-08-03 08:45 | MHC.CM.PN ---
CM met with Patient at bedside and addressed the IMM with her, providing her with the original and placing a copy on the chart. Patient lives alone in her house of 70 years, she uses a cane but has been experiencing recent, frequent falls.Patient is a new Diabetic and is agreeable to a referral to NA for home PT and SN VS STR at her 1st choice facility- [facility], pending PT eval and BCBS Auth(Patient explains that she has a reverse mortgage and cannot be away from her house for more than 2 months and this is why her preference is to return home). CM has initiated and will follow for dc planning.Patient's PCP was Dr. Patricio Cardona prior to his mcc and her first telephonic appointment with her new PCP, Dr. Jackelyn Bazzi is 08/22/20. Patient states that her Nephew/Gabriel @ [phone] and his are her HCPs. Patient also states that she is presently applying for [employer].
[2020-08-03] MEDS: Insulin Glargine,Hum.rec.anlog 100 UNIT/ML 10 ML VIAL 15 UNIT SUBCUT (09:15)
[2020-08-03 09:33] LABS: Glucose, Whole Blood > 600 mg/dL (60-115)
[2020-08-03 11:12] LABS: Glucose, Whole Blood 454 mg/dL (60-115)
[2020-08-03] MEDS: Insulin Glargine,Hum.rec.anlog 100 UNIT/ML 10 ML VIAL SUBCUT (12:11)
--- NOTE | 2020-08-03 14:44 | P.PNIM_ITS ---
Subjective Subjective Date of Service: 08/03/20 Interval History: Vision less blurred. Confusion resolved. Notes numbness of feet bilaterally. Still quite thirsty. No nausea, vomiting, or abd pain. Physical Exam Vital Signs: Vital Signs: Last Vital Signs Temp 97.7 F 08/03/20 11:32 Pulse 72 08/03/20 11:32 Resp 20 08/03/20 11:32 BP 112/57 L 08/03/20 11:32 Pulse Ox 97 08/03/20 11:32 Body Mass Index 31.6 Gen: in no acute distress HEENT: sclera anicteric, dry oral mucosa Neck: supple Lungs: clear to auscultation bilaterally Heart: regular rate and rhythm, no murmurs Abd: soft, non-tender, non-distended Ext: no edema Skin: warm/well-perfused Neuro: alert and oriented x3, no focal findings Psych: appropriate affect Objective Data Current Medications Generic Name Dose Route Start Last Admin Trade Name Freq PRN Reason Stop Dose Admin Acetaminophen 650 mg 08/02/20 17:16 Acetaminophen 325 Mg Tablet PO Q6H PRN Pain, Mild (Pain Scale 1-3) Atenolol 25 mg 08/03/20 09:00 08/03/20 08:26 Atenolol 25 Mg Tablet PO 25 mg DAILY ABDI Administration Protocol Atorvastatin Calcium 10 mg 08/02/20 21:00 08/02/20 21:31 Atorvastatin Calcium 10 Mg Tablet PO 10 mg BEDTIME ABDI Administration Sodium Chloride 1,000 mls @ 100 mls/hr 08/02/20 19:00 08/03/20 13:33 IVCONT 100 mls/hr .Q10H ABDI Administration Insulin Glargine 20 unit 08/04/20 09:00 Insulin Glargine,Hum.Rec.Anlog 100 Unit/Ml 10 Ml Vial SUBCUT DAILY ABDI Insulin Human Lispro 0 unit 08/02/20 21:00 08/03/20 12:11 Insulin Lispro 100 Unit/Ml 3 Ml Vial SUBCUT 10 unit QIDACHS ABDI Administration Protocol Ondansetron HCl 4 mg 08/02/20 17:16 Ondansetron Hcl 4 Mg/2 Ml Vial IVPUSH Q8H PRN Nausea and Vomiting Pharmacy Consult 1 each 08/02/20 15:46 Consult Rx Perform Med Rec MISCELLANE ONCE PRN Consult order Sodium Chloride 3 ml 08/03/20 00:00 08/03/20 08:28 0.9 % Sodium Chloride Flush 3 M[facility] Labs CBC & Chem 7: 08/03/20 06:40 08/03/20 06:40 Labs: Laboratory Results - last 24 hr 08/02/20 08/02/20 08/02/20 09:38 11:24 14:09 WBC RBC Hgb Hct MCV MCH MCHC RDW Plt Count MPV Immature Gran % (Auto) Neut % (Auto) Lymph % (Auto) [place] % (Auto) Eos % (Auto) Baso % (Auto) Lymph # (Auto) [place] # (Auto) Eos # (Auto) Baso # (Auto) Abs Immat Gran (auto) Absolute Neuts (auto) Absolute Nucleated RBC Nucleated RBC % (auto) PT INR Sodium Potassium Chloride Carbon Dioxide Anion Gap BUN Creatinine Estim Creat Clear Calc Estimated GFR POC Glucose > 600 H* 528 H* Random Glucose Estimat Average Glucose TNP Hemoglobin A1c % > 14.0 Osmolality Calcium Magnesium Triglycerides Cholesterol LDL Cholesterol, Calc HDL Cholesterol Urine Color Urine Appearance Urine pH Ur Specific [place] Urine Protein Urine Glucose (UA) Urine Ketones Urine Blood Urine Nitrite Ur Leukocyte Esterase Urine Osmolality Ur Random Sodium Ur Random Potassium COVID-19 (VLADISLAV) [employer] 08/02/20 08/02/20 08/02/20 15:20 16:08 16:52 WBC RBC Hgb Hct MCV MCH MCHC RDW Plt Count MPV Immature Gran % (Auto) Neut % (Auto) Lymph % (Auto) [place] % (Auto) Eos % (Auto) Baso % (Auto) Lymph # (Auto) [place] # (Auto) Eos # (Auto) Baso # (Auto) Abs Immat Gran (auto) Absolute Neuts (auto) Absolute Nucleated RBC Nucleated RBC % (auto) PT INR Sodium Potassium Chloride Carbon Dioxide Anion Gap BUN Creatinine Estim Creat Clear Calc Estimated GFR POC Glucose 406 H* 348 H Random Glucose Estimat Average Glucose Hemoglobin A1c % Osmolality Calcium Magnesium Triglycerides Cholesterol LDL Cholesterol, Calc HDL Cholesterol Urine Color Urine Appearance Urine pH Ur Specific [place] Urine Protein Urine Glucose (UA) Urine Ketones Urine Blood Urine Nitrite Ur Leukocyte Esterase Urine Osmolality Ur Random Sodium Ur Random Potassium COVID-19 (VLADISLAV) Negative COVID-19 [employer] See Note 05/08/02/20 08/02/20 16:52 16:52 19:23 WBC RBC Hgb Hct MCV MCH MCHC RDW Plt Count MPV Immature Gran % (Auto) Neut % (Auto) Lymph % (Auto) [place] % (Auto) Eos % (Auto) Baso % (Auto) Lymph # (Auto) [place] # (Auto) Eos # (Auto) Baso # (Auto) Abs Immat Gran (auto) Absolute Neuts (auto) Absolute Nucleated RBC Nucleated RBC % (auto) PT INR Sodium 156 H Potassium 3.8 D Chloride 113 H Carbon Dioxide 29 Anion Gap 18 BUN 27 H Creatinine 1.40 Estim Creat Clear Calc 25.6 Estimated GFR 36 POC Glucose 323 H Random Glucose 406 H* Estimat Average Glucose Hemoglobin A1c % Osmolality 347 H Calcium 10.1 D Magnesium Triglycerides Cholesterol LDL Cholesterol, Calc HDL Cholesterol Urine Color Urine Appearance Urine pH Ur Specific [place] Urine Protein Urine Glucose (UA) Urine Ketones Urine Blood Urine Nitrite Ur Leukocyte Esterase Urine Osmolality Ur Random Sodium Ur Random Potassium COVID-19 (VLADISLAV) COVID-19 [employer] 08/02/20 08/02/20 08/02/20 19:54 20:51 22:17 WBC RBC Hgb Hct MCV MCH MCHC RDW Plt Count MPV Immature Gran % (Auto) Neut % (Auto) Lymph % (Auto) [place] % (Auto) Eos % (Auto) Baso % (Auto) Lymph # (Auto) [place] # (Auto) Eos # (Auto) Baso # (Auto) Abs Immat Gran (auto) Absolute Neuts (auto) Absolute Nucleated RBC Nucleated RBC % (auto) PT INR Sodium 156 H Potassium 3.8 Chloride 115 H Carbon Dioxide 25 Anion Gap 20 BUN 27 H Creatinine 1.26 Estim Creat Clear Calc 28.5 Estimated GFR 40 POC Glucose 291 H 313 H Random Glucose 333 H Estimat Average Glucose Hemoglobin A1c % Osmolality Calcium 9.8 Magnesium Triglycerides Cholesterol LDL Cholesterol, Calc HDL Cholesterol Urine Color Urine Appearance Urine pH Ur Specific [place] Urine Protein Urine Glucose (UA) Urine Ketones Urine Blood Urine Nitrite Ur Leukocyte Esterase Urine Osmolality Ur Random Sodium Ur Random Potassium COVID-19 (VLADISLAV) COVID-19 [employer] 08/02/20 08/03/20 08/03/20 22:58 00:18 00:48 WBC RBC Hgb Hct MCV MCH MCHC RDW Plt Count MPV Immature Gran % (Auto) Neut % (Auto) Lymph % (Auto) [place] % (Auto) Eos % (Auto) Baso % (Auto) Lymph # (Auto) [place] # (Auto) Eos # (Auto) Baso # (Auto) Abs Immat Gran (auto) Absolute Neuts (auto) Absolute Nucleated RBC Nucleated RBC % (auto) PT INR Sodium 154 H 155 H Potassium 4.1 3.1 L D Chloride 117 H 114 H Carbon Dioxide 18 L 31 H Anion Gap 23 H 13 BUN 27 H 26 H Creatinine 1.22 1.12 Estim Creat Clear Calc 29.4 32.0 Estimated GFR 42 46 POC Glucose 239 H Random Glucose 333 H 219 H Estimat Average Glucose Hemoglobin A1c % Osmolality Calcium 9.2 D 9.5 Magnesium Triglycerides Cholesterol LDL Cholesterol, Calc HDL Cholesterol Urine Color Urine Appearance Urine pH Ur Specific [place] Urine Protein Urine Glucose (UA) Urine Ketones Urine Blood Urine Nitrite Ur Leukocyte Esterase Urine Osmolality Ur Random Sodium Ur Random Potassium COVID-19 (VLADISLAV) [email or web address] 08/03/20 08/03/20 08/03/20 01:49 03:57 03:57 WBC RBC Hgb Hct MCV MCH MCHC RDW Plt Count MPV Immature Gran % (Auto) Neut % (Auto) Lymph % (Auto) [place] % (Auto) Eos % (Auto) Baso % (Auto) Lymph # (Auto) [place] # (Auto) Eos # (Auto) Baso # (Auto) Abs Immat Gran (auto) Absolute Neuts (auto) Absolute Nucleated RBC Nucleated RBC % (auto) PT INR Sodium Potassium Chloride Carbon Dioxide Anion Gap BUN Creatinine Estim Creat Clear Calc Estimated GFR POC Glucose 179 H Random Glucose Estimat Average Glucose Hemoglobin A1c % Osmolality Calcium Magnesium Triglycerides Cholesterol LDL Cholesterol, Calc HDL Cholesterol Urine Color Urine Appearance Urine pH Ur Specific [place] Urine Protein Urine Glucose (UA) Urine Ketones Urine Blood Urine Nitrite Ur Leukocyte Esterase Urine Osmolality 959 Ur Random Sodium < 20.0 Ur Random Potassium 39.4 COVID-19 (VLADISLAV) [employer] 08/03/20 08/03/20 08/03/20 03:57 04:08 05:58 WBC RBC Hgb Hct MCV MCH MCHC RDW Plt Count MPV Immature Gran % (Auto) Neut % (Auto) Lymph % (Auto) [place] % (Auto) Eos % (Auto) Baso % (Auto) Lymph # (Auto) [place] # (Auto) Eos # (Auto) Baso # (Auto) Abs Immat Gran (auto) Absolute Neuts (auto) Absolute Nucleated RBC Nucleated RBC % (auto) PT INR Sodium Potassium Chloride Carbon Dioxide Anion Gap BUN Creatinine Estim Creat Clear Calc Estimated GFR POC Glucose 199 H 238 H Random Glucose Estimat Average Glucose Hemoglobin A1c % Osmolality Calcium Magnesium Triglycerides Cholesterol LDL Cholesterol, Calc HDL Cholesterol Urine Color YELLOW Urine Appearance CLEAR Urine pH 6.0 Ur Specific [place] 1.025 Urine Protein TRACE Urine Glucose (UA) 500 H Urine Ketones 40 Urine Blood NEG Urine Nitrite NEG Ur Leukocyte Esterase NEG Urine Osmolality Ur Random Sodium Ur Random Potassium COVID-19 (VLADISLAV) [employer] 08/03/20 08/03/20 08/03/20 06:40 06:40 06:40 WBC 16.1 H RBC 4.86 Hgb 14.7 Hct 44.4 MCV 91.4 MCH 30.2 MCHC 33.1 RDW 13.8 Plt Count 203 MPV 11.3 Immature Gran % (Auto) 0.6 H Neut % (Auto) 65.1 Lymph % (Auto) 25.7 [place] % (Auto) 8.2 Eos % (Auto) 0.2 Baso % (Auto) 0.2 Lymph # (Auto) 4.1 [place] # (Auto) 1.3 H Eos # (Auto) 0.0 Baso # (Auto) 0.0 Abs Immat Gran (auto) 0.09 H Absolute Neuts (auto) 10.5 H Absolute Nucleated RBC 0.000 Nucleated RBC % (auto) 0.0 PT 12.9 INR 1.1 Sodium 152 H Potassium 3.9 D Chloride 111 H Carbon Dioxide 26 Anion Gap 19 BUN 27 H Creatinine 1.09 Estim Creat Clear Calc 32.9 Estimated GFR 48 POC Glucose Random Glucose 312 H D Estimat Average Glucose Hemoglobin A1c % Osmolality Calcium 9.1 Magnesium Triglycerides Cholesterol LDL Cholesterol, Calc HDL Cholesterol Urine Color Urine Appearance Urine pH Ur Specific [place] Urine Protein Urine Glucose (UA) Urine Ketones Urine Blood Urine Nitrite Ur Leukocyte Esterase Urine Osmolality Ur Random Sodium Ur Random Potassium COVID-19 (VLADISLAV) [employer] 08/03/20 08/03/20 08/03/20 06:40 06:40 08:16 WBC RBC Hgb Hct MCV MCH MCHC RDW Plt Count MPV Immature Gran % (Auto) Neut % (Auto) Lymph % (Auto) [place] % (Auto) Eos % (Auto) Baso % (Auto) Lymph # (Auto) [place] # (Auto) Eos # (Auto) Baso # (Auto) Abs Immat Gran (auto) Absolute Neuts (auto) Absolute Nucleated RBC Nucleated RBC % (auto) PT INR Sodium Potassium Chloride Carbon Dioxide Anion Gap BUN Creatinine Estim Creat Clear Calc Estimated GFR POC Glucose 314 H Random Glucose Estimat Average Glucose Hemoglobin A1c % Osmolality Calcium Magnesium 2.2 Triglycerides 131 Cholesterol 162 LDL Cholesterol, Calc 97 HDL Cholesterol 39 Urine Color Urine Appearance Urine pH Ur Specific [place] Urine Protein Urine Glucose (UA) Urine Ketones Urine Blood Urine Nitrite Ur Leukocyte Esterase Urine Osmolality Ur Random Sodium Ur Random Potassium COVID-19 (VLADISLAV) COVID-19 [employer] 08/03/20 11:01 WBC RBC Hgb Hct MCV MCH MCHC RDW Plt Count MPV Immature Gran % (Auto) Neut % (Auto) Lymph % (Auto) [place] % (Auto) Eos % (Auto) Baso % (Auto) Lymph # (Auto) [place] # (Auto) Eos # (Auto) Baso # (Auto) Abs Immat Gran (auto) Absolute Neuts (auto) Absolute Nucleated RBC Nucleated RBC % (auto) PT INR Sodium Potassium Chloride Carbon Dioxide Anion Gap BUN Creatinine Estim Creat Clear Calc Estimated GFR POC Glucose 454 H* Random Glucose Estimat Average Glucose Hemoglobin A1c % Osmolality Calcium Magnesium Triglycerides Cholesterol LDL Cholesterol, Calc HDL Cholesterol Urine Color Urine Appearance Urine pH Ur Specific [place] Urine Protein Urine Glucose (UA) Urine Ketones Urine Blood Urine Nitrite Ur Leukocyte Esterase Urine Osmolality Ur Random Sodium Ur Random Potassium COVID-19 (VLADISLAV) COVID-19 Clin Com Assessment and Plan (1) Type 2 diabetes mellitus with hyperosmolar hyperglycemic state (HHS): Status: Acute Assessment and Plan: 84yo F with HTN, HLD presenting with falls, weakness, blurry vision, polyuria, and polydipsia. Found to have HHS, TUCKER, and hypernatremia. New diagnosis of DM2. # HHS - continue IV fluids, monitor electrolytes + BG # new-onset DM2 - Lantus 20 units qam + correction-dose lispro. will need DM education, Endocrine referral. T/c MTF if renal function continues to improve. # TUCKER - resolving. continue to hold HCTZ # metabolic encephalopathy - resolving # leukocytosis - no localizing signs of infection, likely reactive to HHS # question of lung nodule - 2V CXR # HTN - continue atenolol; holding HCTZ as above # HLD - continue statin # VTE ppx - LMWH
[2020-08-03 15:06] LABS: Sodium 142 mmol/L (135-145)
[2020-08-03 16:18] LABS: Glucose, Whole Blood 193 mg/dL (60-115)
[2020-08-03] MEDS: Enoxaparin Sodium 40 MG/0.4 ML SYRINGE SUBCUT (16:43)
[2020-08-03 17:51] LABS: Glucose, Whole Blood 213 mg/dL (60-115)
[2020-08-03 20:08] LABS: Glucose, Whole Blood 205 mg/dL (60-115)
[2020-08-03] MEDS: Atorvastatin Calcium 10 MG TABLET PO (21:13)
[2020-08-03 22:15] LABS: Glucose, Whole Blood 220 mg/dL (60-115)
[2020-08-04] VITALS (7 sets, daily range): BP systolic 113–149; BP diastolic 58–68; PULSE 66–78; RESP 16–18; TEMP 36.4–37; O2SAT 96–99
[2020-08-04 00:26] LABS: Glucose, Whole Blood 134 mg/dL (60-115)
[2020-08-04 02:03] LABS: Glucose, Whole Blood 124 mg/dL (60-115)
[2020-08-04] MEDS: Sodium Chloride 0.45 % 1,000 ML 100 ML IVCONT (04:07)
[2020-08-04 05:19] LABS: Glucose, Whole Blood 184 mg/dL (60-115)
[2020-08-04 06:45] LABS: Hematocrit 39.6 % (37-47); Hemoglobin 13.3 g/dl (12.0-16.0); Mean Corpuscular HGB Conc 33.6 g/dl (31.0-35.0); Mean Corpuscular Hemoglobin 30.8 pg (27.0-33.0); Mean Corpuscular Volume 91.7 fL (80-98); Mean Platelet Volume 11.6 fL (9.4-12.3); Platelet Count 147 X10*3/uL (160-400); Red Blood Count 4.32 X10*6/uL (4.20-5.50); Red Cell Distribution Width 13.6 % (11.0-16.0); White Blood Count 9.7 X10*3/uL (4.8-10.8)
[2020-08-04 07:04] LABS: Anion Gap 12 (12-20); Blood Urea Nitrogen 17 mg/dL (9-16); Carbon Dioxide 26 mmol/L (22-29); Chloride 106 mmol/L (96-108); Creatinine Clr Calc Pharmacy 50.6; Estimated Glomerular Filt Rate > 60; Glucose Random 168 mg/dL (60-115); Phosphorus 2.7 mg/dL (2.7-4.5); Potassium 3.2 mmol/L (3.3-5.1); Sodium 141 mmol/L (135-145)
[2020-08-04 07:10] LABS: Glucose, Whole Blood 184 mg/dL (60-115)
[2020-08-04] MEDS: Insulin Glargine,Hum.rec.anlog 100 UNIT/ML 10 ML VIAL 20 UNIT SUBCUT (07:59)
[2020-08-04] MEDS: Insulin Lispro 100 UNIT/ML 3 ML VIAL SUBCUT ×4 (08:00→21:04)
[2020-08-04] MEDS: atenoloL 25 MG TABLET PO (08:00)
[2020-08-04] MEDS: 0.9 % Sodium Chloride Flush 3 ML SYRINGE IVFLUSH ×2 (08:02→15:36)
[2020-08-04] MEDS: Potassium Chloride ER 20 MEQ TAB.ER.PRT 40 MEQ PO (09:38)
[2020-08-04] MEDS: metFORMIN HCl 500 MG TABLET PO ×2 (09:39→16:26)
[2020-08-04 10:52] LABS: Glucose, Whole Blood 379 mg/dL (60-115)
--- NOTE | 2020-08-04 11:11 | MHC.CM.PN ---
Per ROUNDS discussion, Patient is having electrolyte issues and may be ready for dc tomorrow.SHANKAR has asked [facility] [place] to begin the auth process.CM will continue to follow.
[2020-08-04 11:55] LABS: Glucose, Whole Blood 352 mg/dL (60-115)
--- NOTE | 2020-08-04 12:19 | HO.PM.IMPN ---
Subjective Subjective Date of Service: 08/04/20 Interval History: feels better notes numb feet no chest pain no N/V/abd pain Physical Exam Vital Signs: Vital Signs: Last Vital Signs Temp 97.6 F 08/04/20 11:30 Pulse 69 08/04/20 11:30 Resp 18 08/04/20 11:30 BP 113/58 L 08/04/20 11:30 Pulse Ox 98 08/04/20 11:30 Body Mass Index 31.6 Gen: in no acute distress HEENT: sclera anicteric, moist mucus membranes Neck: supple Lungs: clear to auscultation bilaterally Heart: regular rate and rhythm, no murmurs Abd: soft, non-tender, non-distended Ext: no edema Skin: warm/well-perfused Neuro: alert and oriented x3, no focal findings Psych: appropriate affect Objective Data Current Medications Generic Name Dose Route Start Last Admin Trade Name Freq PRN Reason Stop Dose Admin Acetaminophen 650 mg 08/02/20 17:16 Acetaminophen 325 Mg Tablet PO Q6H PRN Pain, Mild (Pain Scale 1-3) Atenolol 25 mg 08/03/20 09:00 08/04/20 08:00 Atenolol 25 Mg Tablet PO 25 mg DAILY ABDI Administration Protocol Atorvastatin Calcium 10 mg 08/02/20 21:00 08/03/20 21:13 Atorvastatin Calcium 10 Mg Tablet PO 10 mg BEDTIME ABDI Administration Enoxaparin Sodium 40 mg 08/03/20 15:00 08/03/20 16:43 Enoxaparin Sodium 40 Mg/0.4 Ml Syringe SUBCUT 40 mg Q24H ABDI Administration Sodium Chloride 1,000 mls @ 100 mls/hr 08/02/20 19:00 08/04/20 11:12 IVCONT Not Given .Q10H ABDI Insulin Glargine 20 unit 08/04/20 09:00 08/04/20 07:59 Insulin Glargine,Hum.Rec.Anlog 100 Unit/Ml 10 Ml Vial SUBCUT 20 unit DAILY ABDI Administration Insulin Human Lispro 0 unit 08/02/20 21:00 08/04/20 12:18 Insulin Lispro 100 Unit/Ml 3 Ml Vial SUBCUT 10 unit QIDACHS ABDI Administration Protocol Metformin HCl 500 mg 08/04/20 09:00 08/04/20 09:39 Metformin Hcl 500 Mg Tablet PO 500 mg BIDWM ABDI Administration Ondansetron HCl 4 mg 08/02/20 17:16 Ondansetron Hcl 4 Mg/2 Ml Vial IVPUSH Q8H PRN Nausea and Vomiting Pharmacy Consult 1 each 08/02/20 15:46 Consult Rx Perform Med Rec MISCELLANE ONCE PRN Consult order Sodium Chloride 3 ml 08/03/20 00:00 08/04/20 08:02 0.9 % Sodium Chloride Flush 3 Ml Syringe IVFLUSH 3 ml QSHIFT [facility] Administration Labs CBC & Chem 7: 08/04/20 05:47 08/04/20 05:47 Labs: Laboratory Results - last 24 hr 08/03/20 08/03/20 08/03/20 14:15 16:12 17:48 WBC RBC Hgb Hct MCV MCH MCHC RDW Plt Count MPV Absolute Nucleated RBC Nucleated RBC % (auto) Sodium 142 Potassium Chloride Carbon Dioxide Anion Gap BUN Creatinine Estim Creat Clear Calc Estimated GFR POC Glucose 193 H 213 H Random Glucose Calcium Phosphorus Magnesium 08/03/20 08/03/20 08/04/20 20:04 22:11 00:23 WBC RBC Hgb Hct MCV MCH MCHC RDW Plt Count MPV Absolute Nucleated RBC Nucleated RBC % (auto) Sodium Potassium Chloride Carbon Dioxide Anion Gap BUN Creatinine Estim Creat Clear Calc Estimated GFR POC Glucose 205 H 220 H 134 H Random Glucose Calcium Phosphorus Magnesium 08/04/20 08/04/20 08/04/20 01:59 05:16 05:47 WBC 9.7 RBC 4.32 Hgb 13.3 Hct 39.6 MCV 91.7 MCH 30.8 MCHC 33.6 RDW 13.6 Plt Count 147 L D MPV 11.6 Absolute Nucleated RBC 0.000 Nucleated RBC % (auto) 0.0 Sodium Potassium Chloride Carbon Dioxide Anion Gap BUN Creatinine Estim Creat Clear Calc Estimated GFR POC Glucose 124 H 184 H Random Glucose Calcium Phosphorus Magnesium 08/04/20 08/04/20 08/04/20 05:47 07:07 10:48 WBC RBC Hgb Hct MCV MCH MCHC RDW Plt Count MPV Absolute Nucleated RBC Nucleated RBC % (auto) Sodium 141 Potassium 3.2 L Chloride 106 Carbon Dioxide 26 Anion Gap 12 BUN 17 H Creatinine 0.71 Estim Creat Clear Calc 50.6 Estimated GFR > 60 POC Glucose 184 H 379 H* Random Glucose 168 H D Calcium 8.0 L D Phosphorus 2.7 Magnesium 2.0 08/04/20 11:52 WBC RBC Hgb Hct MCV MCH MCHC RDW Plt Count MPV Absolute Nucleated RBC Nucleated RBC % (auto) Sodium Potassium Chloride Carbon Dioxide Anion Gap BUN Creatinine Estim Creat Clear Calc Estimated GFR POC Glucose 352 H* Random Glucose Calcium Phosphorus Magnesium Assessment and Plan (1) Type 2 diabetes mellitus with hyperosmolar hyperglycemic state (HHS): Status: Acute Assessment and Plan: 84yo F with HTN, HLD presenting with falls, weakness, blurry vision, polyuria, and polydipsia Found to have HHS, TUCKER, and hypernatremia with newly diagnosed DM2 with A1c >14 # new-onset DM2 - Lantus 20 units qam + correction-dose lispro, start MTF. will need DM education, Endocrine referral. # HHS - resolved # TUCKER - resolved. HCTZ held. # hypoK - replete, recheck BMP in AM # hyperNa - likely hypovlemic. resolved. d/c IV 1/2 NS. recheck BMP in AM. # metabolic encephalopathy - resolved # leukocytosis - no localizing signs of infection, likely reactive to HHS # lung nodule, not - 2V CXR shows no lung nodule # HTN - continue atenolol; held HCTZ as above # HLD - continue statin # VTE ppx - LMWH # dispo - STR likely tomorrow
[2020-08-04] MEDS: Enoxaparin Sodium 40 MG/0.4 ML SYRINGE SUBCUT (15:34)
[2020-08-04 16:09] LABS: Glucose, Whole Blood 266 mg/dL (60-115)
--- NOTE | 2020-08-04 18:43 | PC.NURSE ---
Patient OOB to recliner and amb to bathroom with walker and [address] due to urge incontinence. Patient had 3 bowel movements, will pass to oncoming nurse. Spoke to patient's nieces Ryan and Khadra willis patient condition.
[2020-08-04 20:19] LABS: Glucose, Whole Blood 291 mg/dL (60-115)
[2020-08-04] MEDS: Atorvastatin Calcium 10 MG TABLET PO (21:04)
[2020-08-05] MEDS: 0.9 % Sodium Chloride Flush 3 ML SYRINGE IVFLUSH ×2 (01:46→07:49)
[2020-08-05 03:31] VITALS: BP 137/73; PULSE 75; RESP 20; TEMP 36.8; O2SAT 98
[2020-08-05 07:05] LABS: Anion Gap 11 (12-20); Blood Urea Nitrogen 15 mg/dL (9-16); Calcium 8.1 mg/dL (8.4-10.2); Carbon Dioxide 25 mmol/L (22-29); Chloride 110 mmol/L (96-108); Creatinine Clr Calc Pharmacy 52.8; Estimated Glomerular Filt Rate > 60; Glucose Random 155 mg/dL (60-115); Potassium 3.6 mmol/L (3.3-5.1); Sodium 142 mmol/L (135-145)
[2020-08-05 07:06] LABS: Glucose, Whole Blood 149 mg/dL (60-115)
[2020-08-05 07:16] VITALS: BP 127/60; PULSE 69; RESP 16; TEMP 36.4; O2SAT 98
[2020-08-05 07:48] VITALS: BP 127/60; PULSE 69
[2020-08-05] MEDS: Insulin Glargine,Hum.rec.anlog 100 UNIT/ML 10 ML VIAL 20 UNIT SUBCUT (07:48)
[2020-08-05] MEDS: atenoloL 25 MG TABLET PO (07:48)
[2020-08-05] MEDS: metFORMIN HCl 500 MG TABLET PO (07:48)
[2020-08-05 09:38] LABS: Creatinine Urine 46.91 mg/dL; Microalbum/Creatinine Ratio Ur 29.8 ug/mg cr
[2020-08-05 11:01] LABS: Glucose, Whole Blood 289 mg/dL (60-115)
[2020-08-05 11:18] VITALS: BP 137/66; PULSE 73; RESP 16; TEMP 36.6; O2SAT 98
[2020-08-05] MEDS: Insulin Lispro 100 UNIT/ML 3 ML VIAL SUBCUT (11:31)
--- NOTE | 2020-08-05 12:09 | P.DS_ITS ---
DS: Providers Provider Date of Service: 08/05/20 Date of admission: 08/02/20 17:16 Primary care physician: Jackelyn Bazzi MD DS: Diagnosis Discharge Diagnosis (1) Type 2 diabetes mellitus with hyperosmolar hyperglycemic state (HHS): Status: Acute (2) Hypernatremia: Status: Acute (3) Hypokalemia: Status: Acute (4) Acute kidney failure: Status: Acute (5) Metabolic encephalopathy: Status: Acute (6) Essential hypertension: Status: Acute DS: Medications Discharge Medications Home Medications: Home Medications Medication Instructions Recorded Confirmed simvastatin 1 tab PO BEDTIME 08/02/20 08/02/20 Previous Rx's Medication Instructions Recorded insulin glargine [Lantus U-100 20 unit SUBCUT DAILY #10 ml 08/05/20 Insulin] insulin lispro [Humalog U-100 See Protocol SUBCUT QIDACHS #10 ml 08/05/20 Insulin] lisinopril 5 mg PO DAILY #30 tab 08/05/20 metformin 500 mg PO BIDWM #60 tab 08/05/20 DS: Summary Hospital Course Hospital Course: from admission history and physical by hospitalist ENROLLMENT ELIGIBILITY REPRESENTATIVE Jessica Cervantes, 08/02/20: 84-year-old woman presenting to the ER after several falls at home. according to the patient's nephew she had at least 2 falls at home over the last 2 days. First fall she had EMS was called and she decided she did not want any further workup and they were able to put her in a chair. Second time she fell she called her nephew and his went to check on her and spent most of the day with her. She was found to be weak and unable to get up and they decided to have her evaluated in the emergency department. Patient was alert but somewhat vague. She seemed very weak she reported increased thirst and urination over the last several weeks. She denies any history of diabetes in the past. She denied chest pain, abdominal pain, nausea, vomiting, diarrhea. In the ER her blood sugar was noted to be greater than 845. She was given 2 L of IV fluid, 4 doses of insulin and then placed on an insulin drip. Blood sugars have ranged from 348 to greater than 600. initial potassium 5.5, now 3.8, initial sodium 146 now 156. Anion gap since closed, pH 7.42. Head CT showed no acute abnormalities, chest x-ray negative for consolidation or effusion, urinalysis pending. Patient be admitted for further management and treatment of DKA versus HHS. This patient with HTN and HLD presented with repeated falls and weakness associated with blurry vision, polyuria, and polydipsia. She was found to have HHS from newly diagnosed type 2 diabetes mellitus with A1c of greater than 14. She also had hypernatremia and acute kidney injury along with hypokalemia. She was transitioned from insulin drip to subcutaneous insulin. Electrolyte abnormalities resolved and serum creatinine normalized. Mental status returned to baseline. She was started on 20 units of Lantus daily along with correction dose Humalog. Metformin was also started. The importance of avoiding sugar and simple starches was counseled. She will need close follow-up as an outpatient with her progress new primary care doctor as well as with an associate professor of psychology and an right of way agent. Her antihypertensives as were switched to an ALE inhibitor. She was discharged to long term facility for short-term rehabilitation Time Spent with Patient Time attestation: Total time spent providing and/or coordinating discharge services: 40 Discharge coordination time: Greater than 30 minutes Quality: Stroke Does the patient have a stroke diagnosis?: No Physical Exam Vital Signs: Vital Signs: Last Vital Signs Temp 97.9 F 08/05/20 11:18 Pulse 73 08/05/20 11:18 Resp 16 08/05/20 11:18 BP 137/66 08/05/20 11:18 Pulse Ox 98 08/05/20 11:18 Body Mass Index 31.6 Gen: in no acute distress HEENT: sclera anicteric, moist mucus membranes Neck: supple Lungs: clear to auscultation bilaterally Heart: regular rate and rhythm, no murmurs Abd: soft, non-tender, non-distended Ext: no edema Skin: warm/well-perfused Neuro: alert and oriented x3, no focal findings Psych: appropriate affect DS: Data Data Completed and Pending Completed studies during hospitalization [Text1]: Laboratory Results WBC 9.7 X10*3/uL (4.8-10.8) 08/04/20 05:47 RBC 4.32 X10*6/uL (4.20-5.50) 08/04/20 05:47 Hgb 13.3 g/dl (12.0-16.0) 08/04/20 05:47 Hct 39.6 % (37-47) 08/04/20 05:47 MCV 91.7 fL (80-98) 08/04/20 05:47 MCH 30.8 pg (27.0-33.0) 08/04/20 05:47 MCHC 33.6 g/dl (31.0-35.0) 08/04/20 05:47 RDW 13.6 % (11.0-16.0) 08/04/20 05:47 Plt Count 147 X10*3/uL (160-400) L D 08/04/20 05:47 MPV 11.6 fL (9.4-12.3) 08/04/20 05:47 Immature Gran % (Auto) 0.6 % (0.0-0.4) H 08/03/20 06:40 Neut % (Auto) 65.1 % (45-73) 08/03/20 06:40 Lymph % (Auto) 25.7 % (20-40) 08/03/20 06:40 Bowman % (Auto) 8.2 % (2-11) 08/03/20 06:40 Eos % (Auto) 0.2 % (0-4) 08/03/20 06:40 Baso % (Auto) 0.2 % (0-2) 08/03/20 06:40 Lymph # (Auto) 4.1 X10*3/uL (1.2-4.9) 08/03/20 06:40 Bowman # (Auto) 1.3 X10*3/uL (0.1-1.2) H 08/03/20 06:40 Eos # (Auto) 0.0 X10*3/uL (0.0-0.4) 08/03/20 06:40 Baso # (Auto) 0.0 X10*3/uL (0.0-0.2) 08/03/20 06:40 Abs Immat Gran (auto) 0.09 X10*3/uL (0.00-0.03) H 08/03/20 06:40 Absolute Neuts (auto) 10.5 X10*3/uL (2.0-8.3) H 08/03/20 06:40 Absolute Nucleated RBC 0.000 X10*3/uL (0.0-0.012) 08/04/20 05:47 Nucleated RBC % (auto) 0.0 /100WBC (0.0-0.2) 08/04/20 05:47 PT 12.9 SEC (10.8-13.0) 08/03/20 06:40 INR 1.1 (0.9-1.1) 08/03/20 06:40 O2 Saturation 97.0 % 08/02/20 12:03 ABG pH at Pt Temp 7.41 (7.35-7.45) 08/02/20 12:03 ABG pH (Temp Correct) 7.42 (7.35-7.45) 08/02/20 12:03 ABG pCO2 at Pt Temp 29 mmHg (32-45) L 08/02/20 12:03 ABG pCO2 (Temp Corrct 28 mmHg (32-45) L 08/02/20 12:03 ABG pO2 at Pt Temp 99 mmHg (83-108) 08/02/20 12:03 ABG pO2 (Temp Correct 96 (83-108) 08/02/20 12:03 ABG HCO3 18 mmol/L (22-26) L 08/02/20 12:03 ABG Base Excess (Actual) -4.2 mmol/L 08/02/20 12:03 Sodium 142 mmol/L (135-145) 08/05/20 05:32 Potassium 3.6 mmol/L (3.3-5.1) 08/05/20 05:32 Chloride 110 mmol/L (96-108) H 08/05/20 05:32 Carbon Dioxide 25 mmol/L (22-29) 08/05/20 05:32 Anion Gap 11 (12-20) L 08/05/20 05:32 BUN 15 mg/dL (9-16) 08/05/20 05:32 Creatinine 0.68 mg/dL (0.5-1.4) 08/05/20 05:32 Estim Creat Clear Calc 52.8 08/05/20 05:32 Estimated GFR > 60 08/05/20 05:32 POC Glucose 289 mg/dL (60-115) H 08/05/20 10:55 Random Glucose 155 mg/dL (60-115) H 08/05/20 05:32 Estimat Average Glucose TNP 08/02/20 09:38 Hemoglobin A1c % > 14.0 % 08/02/20 09:38 Osmolality 347 mosm/kg (281-305) H 08/02/20 16:52 Calcium 8.1 mg/dL (8.4-10.2) L 08/05/20 05:32 Phosphorus 2.7 mg/dL (2.7-4.5) 08/04/20 05:47 Magnesium 2.0 mg/dL (1.6-2.6) 08/04/20 05:47 Total Bilirubin 0.6 mg/dL (0.0-1.0) 08/02/20 09:38 Direct Bilirubin 0.3 mg/dL (0.0-0.5) 08/02/20 09:38 AST 16 U/L (5-31) 08/02/20 09:38 ALT 29 U/L (0-31) 08/02/20 09:38 Alkaline Phosphatase 156 U/L (39-117) H 08/02/20 09:38 Total Creatine Kinase 91 U/L (26-140) 08/02/20 09:38 Troponin I High Sens 11.3 ng/L (<3.5-17.0) 08/02/20 09:38 B-Natriuretic Peptide 69 pg/mL (<100) 08/02/20 09:38 Total Protein 7.7 g/dL (6.5-8.0) 08/02/20 09:38 Albumin 4.5 g/dL (3.5-5.0) 08/02/20 09:38 Triglycerides 131 mg/dL 08/03/20 06:40 Cholesterol 162 mg/dL 08/03/20 06:40 LDL Cholesterol, Calc 97 mg/dl 08/03/20 06:40 HDL Cholesterol 39 mg/dL 08/03/20 06:40 Lipase 56 U/L (8-78) 08/02/20 09:38 Urine Color YELLOW 08/03/20 03:57 Urine Appearance CLEAR 08/03/20 03:57 Urine pH 6.0 (5.0-8.0) 08/03/20 03:57 Ur Specific [place] 1.025 (1.005-1.025) 08/03/20 03:57 Urine Protein TRACE MG/DL (NEG-TRACE) 08/03/20 03:57 Urine Glucose (UA) 500 MG/DL (NEG) H 08/03/20 03:57 Urine Ketones 40 MG/DL (NEG) 08/03/20 03:57 Urine Blood NEG (NEG) 08/03/20 03:57 Urine Nitrite NEG (NEG) 08/03/20 03:57 Ur Leukocyte Esterase NEG (NEG) 08/03/20 03:57 Urine Osmolality 959 mosm/kg (373-1093) 08/03/20 03:57 Ur Random Sodium < 20.0 mmol/L 08/03/20 03:57 Ur Random Potassium 39.4 mmol/L 08/03/20 03:57 Urine Creatinine 46.91 mg/dL 08/05/20 08:30 Urine Microalbumin 14.0 mg/L 08/05/20 08:30 Microalb/Creat Ratio 29.8 ug/mg cr 08/05/20 08:30 COVID-19 (VLADISLAV) Negative (Negative) 08/02/20 16:52 COVID-19 Clin Com See Note 08/02/20 16:[address] 08/02/20 08:45 IMPRESSION: No acute findings. Generalized atrophy and nonspecific periventricular white matter disease. Chest X-Ray 08/03/20 15:17 IMPRESSION: No pulmonary nodule seen. Discharge Plan Discharge Patient Disposition: er [facility] Discharge Diagnosis: HHS due to newly diagnosed type 2 diabetes mellitus Referrals: Antonieta Wu DO [Physician] - 2 Weeks Jackelyn Bazzi MD [Physician] - 1 Week Discharge Medications: New Lantus U-100 Insulin 100 unit/mL Solution 20 unit subcut DAILY Qty: 10 RF: 0 metformin 500 mg Tablet 500 mg PO BIDWM Qty: 60 RF: 0 insulin lispro [Humalog U-100 Insulin] 100 unit/mL Solution See Protocol unit subcut QIDACHS Qty: 10 RF: 0 lisinopril 5 mg tablet 5 mg PO DAILY Qty: 30 RF: 0 Continued simvastatin 10 mg tablet 1 tab PO BEDTIME RF: 0 Discontinued atenolol 25 mg tablet 1 tab PO DAILY RF: 0 hydrochlorothiazide 25 mg tablet 1 tab PO DAILY RF: 0 Discharge Orders: Discharge Order (Routine); Ordered 08/05/20 Ordered By: Loco Rodriguez Diet: diabetic diet and other Activity on Discharge: As tolerated Stand Alone Forms: Patient Portal Discharge page Other Ambulatory Orders: Basic Metabolic Panel (Routine) Timeframe: 1 Week Facility: [facility] - Location: Laboratory Ordered By: Loco Rodriguez Care Plan Goals: avoid complications of diabetes Health Concerns: uncontrolled, newly diagnosed type 2 diabetes mellitus Plan of Treatment: avoid sugar and simple starches take Lantus 20 units every evening and metformin 500 mg twice daily change blood pressure medications: stop HCTZ and atenolol and start lisinopril 5 mg daily; recheck BMP in 1 week [non-fasting] follow up with your primary doctor and then get referred to Endocrinology and Ophthalmology Assessment: as above Patient Instructions: Type 2 Diabetes in the Older Adult (DC)
--- NOTE | 2020-08-05 12:16 | MHC.CM.PN ---
CM MET WITH PT TO DISCUSS DC PLANS. PT PLANS TO DC TO [facility] [place] FOR [facility]. CM INFORMED HER THEY WERE REQUESTING A HCP PRIOR TO ADMISSION. PT COMPLETED A HCP NAMING HER NEPHEW/GOD SON, NINA BULLOCK, HER AGENT. DOCUMENT WAS SENT TO [facility] VIA [facility] AND A DC TIME OF 1330 HOURS WAS DECIDED ON. PT WILL BE TRANSPORTED VIA BLS AND SHE REPORTS SHE WILL INFORM HER HCP.
== END 2020-08-05 13:30 | disposition skilled nursing facility (03) | DRG 637 ==
LOC: HO.ED 15:44 → HO.EDOVER 17:30 → HO.IMC 18:15
PROVIDERS: Nurse Practitioner Acute Care; Admitting Provider Family Medicine; Emergency Provider Emergency Medicine; Visit Provider Family Medicine
DX: E11.00 Type 2 diabetes mellitus with hyperosmolarity without nonketotic hyperglycemic-hyperosmolar coma (NKHHC) (principal); G93.41 Metabolic encephalopathy; N17.9 Acute kidney failure, unspecified; E87.0 Hyperosmolality and hypernatremia; Z91.81 History of falling; E86.0 Dehydration; E87.6 Hypokalemia; D72.829 Elevated white blood cell count, unspecified; R29.6 Repeated falls; E78.5 Hyperlipidemia, unspecified; I10 Essential (primary) hypertension; Z20.822 Contact with and (suspected) exposure to COVID-19; Z79.4 Long term (current) use of insulin; Z79.899 Other long term (current) drug therapy
CPT/HCPCS: 36415; 70450; 71045; 71046; 80048; 80061; 80076; 81003; 82043; 82550; 82947; 83036; 83690; 83735; 83880; 83930; 83935; 84100; 84133; 84295; 84300; 84484; 85025; 85027; 85610; 87635; 93005; 96372; 96374; 96375; 97116; 97162; 97530; 99285; J1650